=== PATIENT | female | born 1965 | race African-American/Black ===

== ENCOUNTER 2023-12-15 09:04 | Inpatient (IN) | payer OTHER ==
[2023-12-15 10:02] VITALS: BMI 18.2
[2023-12-15] MEDS ORDERED: BENZOCAINE/MENTHOL (CHLORASEPTIC ) LOZENGE MM PRN (10:33)
[2023-12-15] MEDS ORDERED: IBUPROFEN 600 MG TABLET (FP) PO PRN (10:33)
[2023-12-15] MEDS ORDERED: POLYETHYLENE GLYCOL (HEALTHYLAX) 3350 17 GM PACKET PO PRN (10:33)
[2023-12-15] MEDS ORDERED: MAGNESIUM HYDROX 2400MG/30ML ORAL SUSPENSION 30 ML CUP PO PRN (10:33)
[2023-12-15] MEDS ORDERED: hydrOXYzine PAMOATE 25 MG CAPSULE (FP) PO PRN (10:33)
[2023-12-15] MEDS ORDERED: IBUPROFEN 400 MG TABLET (FP) PO PRN (10:33)
[2023-12-15] MEDS ORDERED: BENZONATATE 200 MG CAPSULE PO PRN (10:33)
[2023-12-15] MEDS ORDERED: ACETAMINOPHEN 325 MG TABLET (FP) PO PRN (10:33)
[2023-12-15] MEDS ORDERED: LOPERAMIDE HCL 2 MG CAPSULE PO PRN (10:33)
[2023-12-15] MEDS ORDERED: NALOXONE HCL 0.4 MG/ML VIAL IM PRN (10:33)
[2023-12-15] MEDS ORDERED: MAG HYDROX/AL HYDROX/SIMETH 30 ML UNIT-DOSE CUP PO PRN (10:33)
[2023-12-15] MEDS ORDERED: NALOXONE HCL (KLOXXADO) 8 MG SPRAY NS PRN (10:33)
[2023-12-15] MEDS ORDERED: ALBUTEROL SO4 HFA INHALER IH PRN (13:52)
[2023-12-15] MEDS ORDERED: PRENATAL VITAMINS W/ FOLIC ACID TABLET (FP) PO ONE (13:59)
[2023-12-15] MEDS ORDERED: NICOTINE 14 MG/24 HOURS TOPICAL PATCH TD ONE (13:59)
[2023-12-15] MEDS: NICOTINE 14 MG/24 HOURS TOPICAL PATCH TD SCH (14:03)
[2023-12-15] MEDS: PATIENT'S OWN MEDICATION (NON-FORMULARY) (Nifedipine [Nifedipine Er] 60 MG Tablet.Er) PO SCH (14:03)
[2023-12-15] MEDS: PRENATAL VITAMINS W/ FOLIC ACID TABLET (FP) PO SCH (14:03)
[2023-12-15] MEDS: THIAMINE 100 MG TABLET PO SCH (22:50)
[2023-12-15] MEDS: MELATONIN 5 MG TABLETS PO SCH (22:50)
[2023-12-16] MEDS: NIFEdipine E.R 60 MG TABLET PO SCH (09:11)
[2023-12-16] MEDS: LISINOPRIL 10 MG TABLET PO ONE ×2 (11:16→14:56)
[2023-12-16 15:18] LABS: HEMOGLOBIN 13.9 GM/dL (10.7-15.3); MCH 29.8 pg (25.7-33.7); MCHC 33.1 g/dl (32.0-36.0); MEAN PLT VOLUME 10.6 fl (7.5-11.1); PLATELET COUNT 207 10^3/uL (134-434); RBC 4.67 M/mm3 (3.60-5.2); RDW 14.2 % (11.6-15.6); WHITE BLOOD COUNT 7.9 K/mm3 (4.0-10.0)
[2023-12-16 15:20] LABS: POTASSIUM 4.6 mmol/L (3.5-5.1)
[2023-12-16 15:33] LABS: ALBUMIN 3.5 g/dl (3.4-5.0); BLOOD UREA NITROGEN 27.2 mg/dL (7-18); CALCIUM 9.2 mg/dL (8.5-10.1)
[2023-12-16 15:36] LABS: CREATININE 1.8 mg/dL (0.55-1.3)
[2023-12-16 15:37] LABS: TOT PROT 6.8 g/dl (6.4-8.2)
[2023-12-16 15:38] LABS: BILIRUBIN,TOTAL 0.8 mg/dL (0.2-1)
[2023-12-16 16:11] LABS: SYPHILIS W/ RPR CONF NON-REACTIVE (NONREACTIVE)
[2023-12-16] MEDS: guaiFENesin 600 MG TABLET.ER (FP) PO PRN (22:32)
[2023-12-17 09:09] VITALS: BP 177/88; PULSE 79; RESP 18; TEMP 97.6
== END 2023-12-17 10:54 | disposition left against medical advice (07) | DRG 894 ==
LOC: YASAS 09:04 → Y3NR 13:46
PROVIDERS: ADMIT Allergy & Immunology; ATTEND Psychiatry & Neurology Pain Medicine
PROC: HZ42ZZZ Group Counseling for Substance Abuse Treatment, Cognitive-Behavioral (ICD-10-PCS; principal; 2023-12-15)
DX: F14.20 Cocaine dependence, uncomplicated (principal); F10.20 Alcohol dependence, uncomplicated; F17.210 Nicotine dependence, cigarettes, uncomplicated; I10 Essential (primary) hypertension; J45.909 Unspecified asthma, uncomplicated
CPT/HCPCS: 36415; 80053; 80305; 80307; 85027; 86780; 86803; 87811; 93005; 93010